=== PATIENT | male | born 1960 | race Caucasian/White ===

== ENCOUNTER → 2023-09-22 13:06 | Outpatient (REF) | payer OTHER, SELFPAY | LOC: RAD 13:06 | PROVIDERS: ATTENDING PHYSICIAN Internal Medicine | DX: M54.2 Cervicalgia (principal) | CPT/HCPCS: 72050 ==

== ENCOUNTER → 2023-12-07 06:32 | Day surgery (SDC) | payer OTHER, SELFPAY | LOC: GI 06:32 | PROVIDERS: ATTENDING PHYSICIAN Specialist | DX: K51.00 Ulcerative (chronic) pancolitis without complications (principal) | CPT/HCPCS: 45380; 88305 ==

== ENCOUNTER → 2024-03-29 22:00 | Outpatient (REF) | payer OTHER, SELFPAY | LOC: DHSLP 22:00 | PROVIDERS: ATTENDING PHYSICIAN Internal Medicine; FAMILY PHYSICIAN Internal Medicine | DX: G47.33 Obstructive sleep apnea (adult) (pediatric) (principal) | CPT/HCPCS: 95800 ==

== ENCOUNTER → 2024-04-11 08:29 | Outpatient (REF) | payer OTHER, SELFPAY | LOC: RAD 08:29 | PROVIDERS: ATTENDING PHYSICIAN Internal Medicine Cardiovascular Disease; FAMILY PHYSICIAN Internal Medicine; REFERRING PHYSICIAN Physician Assistant | DX: E78.2 Mixed hyperlipidemia (principal); R06.09 Other forms of dyspnea; I45.10 Unspecified right bundle-branch block; F17.200 Nicotine dependence, unspecified, uncomplicated | CPT/HCPCS: 93017; 71271; 93350 ==

== ENCOUNTER → 2024-05-02 08:29 | Outpatient (REF) | payer OTHER, SELFPAY | LOC: RCS 08:29 | PROVIDERS: ATTENDING PHYSICIAN Internal Medicine Cardiovascular Disease; FAMILY PHYSICIAN Internal Medicine | DX: I10 Essential (primary) hypertension (principal); R06.09 Other forms of dyspnea; I45.10 Unspecified right bundle-branch block; R60.0 Localized edema | CPT/HCPCS: 93306 ==

== ENCOUNTER 2024-10-07 06:17 | Day surgery (SDC) | payer OTHER, SELFPAY ==
[2024-10-03 11:35] LABS: Hematocrit 42.9 % (39.0-52.0); Hemoglobin 14.8 g/dL (13.0-18.0); Mean Corp Hgb Conc. 34.5 g/dL (33.0-37.0); Mean Corpuscular Hgb 30.3 pg (27.0-31.0); Mean Corpuscular Volume 87.9 fL (80.0-94.0); Platelet Count 212 10^3/uL (130-400); Red Blood Cell Count 4.88 10^6/uL (4.70-6.10); Red Cell Dist. Width 12.7 % (11.5-14.5)
[2024-10-03 12:59] VITALS: BMI 34.1
[2024-10-03 13:14] LABS: Blood Urea Nitrogen 13 mg/dl (9-20); Calcium 9.1 mg/dl (8.4-10.2); Carbon Dioxide 26 mmol/L (22-30); Chloride 99 mmol/L (98-107); Estimated Creatinine Clearance > 125 ml/min; Glucose 90 mg/dl (70-99); Potassium 4.3 mmol/L (3.5-5.1); Sodium 135 mmol/L (135-145); eGFR > 60.00
--- NOTE | 2024-10-03 16:51 | PTCARENOTE ---
Abnormal ECG done 10/03/24, reviewed by Dr Moralez, no further intervention requested.
[2024-10-07] VITALS (10 sets, daily range): BP systolic 133–172; BP diastolic 71–104; BMI 34.1
[2024-10-07] MEDS: TYLENOL 1000 MG PO (10:47)
[2024-10-07] MEDS: CELEBREX 200 MG PO (11:04)
[2024-10-07] MEDS: NORMOSOL-R/PLASMALYTE-A 1000 IV (11:05)
[2024-10-07] MEDS: DILAUDID 0.5 MG IV (14:48)
== END 2024-10-07 16:37 | disposition home or self-care (01) ==
LOC: SDS 06:17
PROVIDERS: ATTENDING PHYSICIAN Specialist; FAMILY PHYSICIAN Internal Medicine
DX: S46.012A Strain of muscle(s) and tendon(s) of the rotator cuff of left shoulder, initial encounter (principal); S46.212A Strain of muscle, fascia and tendon of other parts of biceps, left arm, initial encounter; X58.XXXA Exposure to other specified factors, initial encounter
CPT/HCPCS: 29827; 29828; 36415; 80048; 85027; 93005; C1713

== ENCOUNTER 2024-12-29 15:16 | Emergency (ER) | payer OTHER, SELFPAY ==
[2024-12-29 15:38] VITALS: BP 157/83
--- NOTE | 2024-12-29 17:31 | ED.GENMED ---
History of Present Illness
General
Chief Complaint: Skin Surface Trauma
Source: patient
Time Seen by Provider: 12/29/24 16:56
History of Present Illness
History of Present Illness:
64-year-old male with past medical history of hypertension hyperlipidemia presenting to the ER for evaluation after he accidentally injured his left hand with a drill bit proximately 30 minutes prior to arrival to the ER causing laceration to the
interdigital webbing space between the thumb and index finger. Patient unsure of last tetanus. [id number]. No other injury sustained.
Past History
Past History
ED Past Medical History: HTN, Hypercholesterolemia and Other (Ulcerative colitis)
ED Past Surgical History: Orthopedic
Social History
Tobacco: Smoker
Alcohol: Daily (5 days a week Vodka and tonic)
Drug: None
Personal: Single
Living: alone
Review of Systems
Review of Systems
All Other Systems: ROS reviewed and negative except as documented in HPI and ROS
Phy Exam
Physical Exam
Physical Exam:
GENERAL: Alert , in no apparent distress
EYE: conjunctiva clear
Head: Normocephalic atraumatic
NECK: Supple,
ENT: mmm.
LUNGS: no acute respiratory distress
NEUROLOGICAL: Alert and oriented
SKIN: Warm and dry, stellate ~2cm in total length laceration in between thumb and index finger
MUSCULOSKELETAL: well perfused. FROM thumb including opposition. sensation grossly intact to light touch
PSYCH: Normal and appropriate interaction.
Scores
Heart Failure Risk
Heart Failure Risk Score: Not Applicable
Heart Score for Chest Pain Patients
STEMI patient?: Not applicable
Withdrawal Assessment of Alcohol
Withdrawal Assessment Completed?: Not applicable
Course
Orders/Labs/Results
Orders:
Orders
12/29/24 17:30
Tetanus/Diphth/Acelpertussis [Adacel] 0.5 ml IM .ONCE ONE
Vital Signs
Initial and Last Documented VS:
Initial Vital Signs
Temp Pulse Resp BP Pulse Ox
98.0 F 70 16 157/83 96
12/29/24 15:38 12/29/24 15:38 12/29/24 15:38 12/29/24 15:38 12/29/24 15:38
Last Documented Vital Signs
Temp Pulse Resp BP Pulse Ox
98.0 F 70 16 157/83 96
12/29/24 15:38 12/29/24 15:38 12/29/24 15:38 12/29/24 15:38 12/29/24 15:38
Procedures
Laceration Closure
Left Hand:
Status of Wound: clean
Size of Wound in cm: 2
Description of Wound Edges: sharp and flap-well vascularized
Preparation: cleaned with saline
Anesthesia: 1% Lidocaine
Revision/Debridement: routine- no revision
Type of Closure: single layer closure
Skin Closure Material: 5-0 nylon
Number of sutures: 10
MDM/Problems Addressed
Differential Diagnosis Includes:
simple lac, no concern for tendon or nerve injury, superficial and no concern for fracture
MDM/Problems Addressed:
Patient presented to the ER for evaluation after injuring left hand with a drill bit. Laceration repaired as above without difficulty. Patient advised on wound care. Suture removal 10 to 12 days. Stable for discharge home.
*Pulse Oximetry
Patient hypoxic: no
*Critical Care Note
Total Time (30-74mins, 75-104mins- exclusive of procedures): Not Applicable
ED Attending Note
-
Portions of this chart may have been created with voice recognition software.� Occasional wrong word or��sound alike� substitutions may have occurred due to the inherent limitations of voice recognition software.
Discharge Plan
Departure
Patient Disposition: Home (Routine Discharge)
Date of Disposition: 12/29/24
Time of Disposition: 17:31
Patient with high blood pressure during this ER visit?: Yes
Discharge Problem:
Laceration of finger of left hand
Instructions: Laceration Repair With Stitches (DC)
Prescriptions:
No Action
atorvastatin 40 mg Tablet
80 mg PO DAILY
Rx Instructions:
Only take 40 mg
valsartan 80 mg Tablet
80 mg PO DAILY
amlodipine 10 mg Tablet
10 mg PO DAILY
ibuprofen 200 mg Tablet
400 mg PO Q6H PRN (Reason: pain)
albuterol sulfate 90 mcg/actuation Hfa Aerosol Inhaler
1 inh INHALATION PRN PRN (Reason: shortness of breath)
ezetimibe 10 mg Tablet
10 mg PO DAILY
Inflectra 100 mg Recon Soln
100 mg IV .[id number]
Activity Restrictions/Additional Instructions:
Suture removal in 10 to 12 days
Interventions
Interventions:
*Risk Screen - Suicide Last Done: 12/29/24 15:38
*General Assessment Last Done: 12/29/24 15:38
*Neglect/Abuse Screening Last Done: 12/29/24 15:38
*ED- Fall Risk Assessment Last Done: 12/29/24 16:52
*ED COVID-19 Vaccine History Last Done: 12/29/24 15:38
ED-Skin Assessment Last Done: 12/29/24 16:52
Discharge Date and Time
Print Language: ARABIC
[2024-12-29] MEDS: ADACEL 0.5 ML IM (17:52)
== END 2024-12-29 17:45 | disposition home or self-care (01) ==
LOC: EMR 15:16
PROVIDERS: EMERGENCY PHYSICIAN Emergency Medicine
DX: S69.92XA Unspecified injury of left wrist, hand and finger(s), initial encounter (principal); W45.8XXA Other foreign body or object entering through skin, initial encounter; Z23 Encounter for immunization; I10 Essential (primary) hypertension; E78.00 Pure hypercholesterolemia, unspecified; F17.200 Nicotine dependence, unspecified, uncomplicated; K51.90 Ulcerative colitis, unspecified, without complications
CPT/HCPCS: 99282; 12001; 90471; 90715